=== PATIENT | female | born 1970 ===

== ENCOUNTER → 2019-03-02 | Outpatient (CLI) | payer MEDICARE, OTHER ==
--- NOTE | 2019-03-02 14:23 | MM ---
Reason for exam: additional evaluation requested from prior study. Last mammogram was performed 7 months ago. History: Patient has history of breast cancer at age 41. Family history of breast cancer in maternal grandmother. Took hormonal contraceptives for 3 months. Took antineoplastic for 5 years. Physical Findings: Nurse did not find any significant physical abnormalities on exam. MG 3D Diag Mammo W/Cad RT CC and MLO view(s) were taken of the right breast. Prior study comparison: August 12, 2018, mammogram. July 13, 2018, mammogram. There are scattered fibroglandular densities. Right lumpectomy change with developing heterogenous calcifications, likely associated fat necrosis. Biopsy marker remains. asymmetry just posterior to the lumpectomy site is less pronounced. These results were verbally communicated with the patient and result sheet given to the patient on 03/02/19. ASSESSMENT: Probably benign, BI-RAD 3 RECOMMENDATION: Follow-up diagnostic mammogram of both breasts in 6 months.
== END | disposition home or self-care (01) ==
LOC: RADMAMWWP 12:14
PROVIDERS: ATTEND Family Medicine
DX: Z08 Encounter for follow-up examination after completed treatment for malignant neoplasm (principal); Z85.3 Personal history of malignant neoplasm of breast; Z98.890 Other specified postprocedural states
CPT/HCPCS: 77065; G0279; 77061

== ENCOUNTER 2019-06-19 14:17 | Emergency (ER) | payer MEDICARE, OTHER ==
[2019-06-19 14:28] VITALS: RESP 18; TEMP 98.1
[2019-06-19] MEDS ORDERED: SODIUM CHLORIDE 0.9% 1,000 ML IV STA (14:46)
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
[2019-06-19] MEDS ORDERED: MECLIZINE 12.5 MG TAB PO STA (14:54)
--- NOTE | 2019-06-19 15:24 | XR ---
EXAMINATION TYPE: XR chest 2V DATE OF EXAM: 06/19/2019 COMPARISON: NONE TECHNIQUE: PA and lateral views submitted. HISTORY: cough FINDINGS: The lungs are clear and there is no pneumothorax, pleural effusion, or focal pneumonia. IMPRESSION: 1. No acute process.
[2019-06-19 15:25] LABS: Basophils % (A) 0 %; Eosinophils # (A) 0.1 k/uL (0-0.7); Eosinophils % (A) 1 %; HCT 44.6 % (34.0-46.0); HGB 14.7 gm/dL (11.4-16.0); Lymphocytes # (A) 1.5 k/uL (1.0-4.8); Lymphocytes % (A) 35 %; MCH 31.2 pg (25.0-35.0); MCHC 32.9 g/dL (31.0-37.0); MCV 94.8 fL (80.0-100.0); Mean Platelet Volume 10.7; Monocytes # (A) 0.2 k/uL (0-1.0); Monocytes % (A) 5 %; Neutrophils # (A) 2.5 k/uL (1.3-7.7); Neutrophils % (A) 57 %; Platelet Count 180 k/uL (150-450); RDW 12.5 % (11.5-15.5); WBC 4.5 k/uL (3.8-10.6)
[2019-06-19 15:31] LABS: ALT 22 U/L (4-34); AST 22 U/L (14-36); African American GFR (CKD) >90 (>60 ml/min/1.73 sqM); Albumin 4.6 g/dL (3.5-5.0); Alkaline Phosphatase 58 U/L (38-126); Anion Gap 9 mmol/L; Blood Urea Nitrogen 17 mg/dL (7-17); Calcium 9.7 mg/dL (8.4-10.2); Carbon Dioxide 24 mmol/L (22-30); Chloride 107 mmol/L (98-107); Glucose 87 mg/dL (74-99); Non-African American GFR(CKD) >90 (>60 ml/min/1.73 sqM); Potassium 3.9 mmol/L (3.5-5.1); Sodium 140 mmol/L (137-145); Total Bilirubin 0.8 mg/dL (0.2-1.3); Total Protein 7.4 g/dL (6.3-8.2)
[2019-06-19 15:49] LABS: Appearance,Urine Clear (Clear); Bilirubin,Urine Negative (Negative); Blood,Urine Negative (Negative); Glucose,Urine (UA) Negative (Negative)
[2019-06-19 15:50] LABS: Color,Urine Yellow; Leukocyte Esterase,Urine Negative (Negative); Nitrite,Urine Negative (Negative); Urobilinogen,Urine <2.0 mg/dL (<2.0)
[2019-06-19 15:51] LABS: Ketones,Urine Negative (Negative); Protein,Urine 1+ (Negative)
[2019-06-19 15:54] LABS: Bacteria,Urine Many /hpf; Mucus,Urine Rare /hpf; RBC,Urine <1 /hpf (0-5); Squamous Epithelial Cell,Urine 3 /hpf (0-4); WBC,Urine 5 /hpf (0-5)
[2019-06-19 16:05] LABS: Amphetamine Screen,Urine Not Detected (NotDetected); Barbiturate Screen,Urine Not Detected (NotDetected); Benzodiazepines Screen,Urine Not Detected (NotDetected); Cocaine Screen,Urine Not Detected (NotDetected); Methadone Screen, Urine Not Detected (NotDetected); Opiate Screen,Urine Not Detected (NotDetected); Phencyclidine Screen,Urine Not Detected (NotDetected); Tricyclic Antidepressant,Urine Not Detected (NotDetected); Urn Cannabinoid Scrn Not Detected (NotDetected)
[2019-06-19 16:06] LABS: Oxycodone Screen, Urine Detected (NotDetected)
[2019-06-19 16:34] VITALS: BP 117/81; PULSE 73
== END 2019-06-19 17:05 | disposition home or self-care (01) ==
LOC: EC 14:17
DX: R42 Dizziness and giddiness (principal); R05 Cough; R49.0 Dysphonia; G89.29 Other chronic pain; M54.9 Dorsalgia, unspecified; Z91.19 Patient's noncompliance with other medical treatment and regimen; Z53.29 Procedure and treatment not carried out because of patient's decision for other reasons; Z79.891 Long term (current) use of opiate analgesic; Z88.8 Allergy status to other drugs, medicaments and biological substances; Z85.3 Personal history of malignant neoplasm of breast; Z98.890 Other specified postprocedural states
CPT/HCPCS: 36415; 71046; 80053; 80306; 81001; 82375; 85025; 93005; 99284

== ENCOUNTER → 2019-11-21 | Outpatient (CLI) | payer MEDICARE, OTHER ==
--- NOTE | 2019-11-22 13:15 | MM ---
Reason for exam: additional evaluation requested from prior study. Last mammogram was performed 9 months ago. History: Patient has history of breast cancer at age 41. Family history of breast cancer in maternal grandmother. Lumpectomy of the right breast, 2011. Took hormonal contraceptives for 3 months. Took antineoplastic for 5 years. Physical Findings: Nurse did not find any significant physical abnormalities on exam. MG 3D Diag Mammo W/Cad JOANN Bilateral CC and MLO view(s) were taken. Prior study comparison: March 02, 2019, right breast MG 3d diag mammo w/cad RT. August 12, 2018, mammogram. The breast tissue is heterogeneously dense. This may lower the sensitivity of mammography. Global asymmetry left upper outer quadrant. Progressive fat necrosis calcifications right axillary tail. No significant new findings when compared with previous films. These results were verbally communicated with the patient and result sheet given to the patient on 11/21/19. ASSESSMENT: Incomplete: need additional imaging evaluation, BI-RAD 0 RECOMMENDATION: Ultrasound of both breasts. (periareolar on both side for nipple discharge)
== END | disposition home or self-care (01) ==
LOC: RADMAMWWP 14:31
PROVIDERS: ATTEND Family Medicine
DX: N64.52 Nipple discharge (principal); Z85.3 Personal history of malignant neoplasm of breast
CPT/HCPCS: 77066; G0279; 77062

== ENCOUNTER → 2019-11-28 | Outpatient (CLI) | payer MEDICARE, OTHER ==
--- NOTE | 2019-12-02 07:22 | USB ---
Reason for exam: additional evaluation requested from abnormal screening. History: Patient has history of breast cancer at age 41. Family history of breast cancer in maternal grandmother. Lumpectomy of the right breast, 2011. Took hormonal contraceptives for 3 months. Took antineoplastic for 5 years. Physical Findings: Nurse Summary: left nipple discharge started April 2019 ([facility]). US Breast Limited BILAT Right limited breast ultrasound including focal area of concern, retroareolar and axilla demonstrates no cystic or solid lesion seen. Left limited breast ultrasound including focal area of concern, retroareolar and axilla demonstrates no cystic or solid lesion seen. These results were verbally communicated with the patient and result sheet given to the patient on 11/28/19. ASSESSMENT: Negative, BI-RAD 1 RECOMMENDATION: Routine screening mammogram of both breasts in 1 year. Manage on a clinical basis with regard to pain.
== END | disposition home or self-care (01) ==
LOC: RADUSWWP 09:30
PROVIDERS: ATTEND Family Medicine
DX: R92.8 Other abnormal and inconclusive findings on diagnostic imaging of breast (principal); Z98.890 Other specified postprocedural states

== ENCOUNTER → 2020-08-03 | Outpatient (CLI) | payer MEDICARE, OTHER ==
--- NOTE | 2020-08-03 16:01 | P.GSHP ---
History of Present Illness H&P Date: 08/03/20 Chief Complaint: history of right breast cancer Christine is a 49 year old white female seen in consultation for Dr. Maravilla regarding a history of a right breast cancer. She was diagnosed with a right breast cancer at the age of 43 and was treated with a lumpectomy and radiation therapy. She did not have any chemotherapy, but did have hormonal therapy. She is uncertain as to the size of the tumor,it was an invasive ductal carcinoma. She did take tamoxifen for 5 years. Additionally she states that she was told that no lymph nodes were involved. She has been off of tamoxifen for approximately 1 year. She was in the [facility]. Her Surgeon was Dr. Tami Steel. At this time she is concerned that the breast are uneven. Her last bilateral mammogram was on following this bilateral breast ultrasound was performed. Following the ultrasound was felt that this was a negative BIRADS 1 and repeat bilateral mammogram in 1 year. She does complain of scar tissue in the right breast which makes it hard to evaluate. She did have biopsies of the scar tissue at [facility] and this was only scar tissue. She is complaining of some bilateral nipple crusting. This has been going on for approximately 3 years and hasn't changed. She is not complaining of any bloody discharge. There are no new lumps masses or nodules in her breasts. She does continue to have some fullness in the right breast near the area of the scar. She is not complaining of any breast pain. The difference in chantale size of hte breast is of concern to the patient. Her breast do not fit correctly secondary to the difference in size. Patient had genetic testing performed when she was diagnosed and was told this was negative. Caffeine: Occasional Nicotine: Negative Chocolate:occasional Family history: maternal grandmother: breast cancer father: prostate cancer Hormonal History: menarche: 15 A2, breast fed: no, age at : 17 menopause: hysterectomy at 35, left ovaries; done for fibroids BCP: 1 year; DEPO shot 6 months after breast cancer Surgical History: hysterectomy right breast lumpectomy and [facility] ovarian cyst 4 back surgeries Medical history: chronic back pain migraines kidney stones times 4/lithotripsy Social History: smoke: none alcohol: none drugs: none - Constitutional Constitutional: Reports sweats - EENT Eyes: denies blurred vision, denies pain Ears: deny: decreased hearing, tinnitus Ears, nose, mouth and throat: Reports headache - Breasts Breasts: bilateral: as per HPI - Cardiovascular Cardiovascular: Denies chest pain, Denies shortness of breath - Respiratory Respiratory: Denies cough, Denies 7 - Gastrointestinal Gastrointestinal: Denies abdominal pain, Denies diarrhea, Denies nausea, Denies vomiting - Genitourinary (Female) Genitourinary: Reports kidney stones - Menstruation Menstruation: Reports postmenopausal - Musculoskeletal Comment: back surgery/ fell off a ladder Musculoskeletal: Reports myalgias - Integumentary Integumentary: Denies pruritus, Denies rash - Neurological Neurological: Reports weakness, Denies numbness - Psychiatric Psychiatric: Reports anxiety, Denies depression - Endocrine Endocrine: Reports weight change - Hematologic/Lymphatic Comment: none - Allergic/Immunologic Allergic/Immunologic: Reports as per HPI Past Medical History Past Medical History: Cancer Additional Past Medical History / Comment(s): chronic back pain, breast CA History of Any Multi-Drug Resistant Organisms: None Reported Past Surgical History: Back Surgery, Breast Surgery Additional Past Surgical History / Comment(s): 4 back surgery, R lumpectomy Past Psychological History: Anxiety Smoking Status: Never smoker Past Alcohol Use History: None Reported Past Drug Use History: None Reported Medications and Allergies Home Medications Medication Instructions Recorded Confirmed Type Ascorbic Acid [Vitamin C] 500 mg PO DAILY 08/03/20 08/03/20 History Biotin 5 mg PO DAILY 08/03/20 08/03/20 History Butalb/Acetaminophen/Caffeine 1 - 2 cap PO Q4HR PRN 08/03/20 08/03/20 History [Fioricet 50-300-40 mg Capsule] Cholecalciferol [Vitamin D3 (25 25 mcg PO DAILY 08/03/20 08/03/20 History Mcg = 1000 Iu)] Multivitamin [Multivitamins Adult 1 each PO DAILY 08/03/20 08/03/20 History Gummies] Topiramate [Topamax] 25 mg PO BID 08/03/20 08/03/20 History buPROPion [Wellbutrin] 75 mg PO BID 08/03/20 08/03/20 History oxyCODONE-APAP 7.5-325MG [Percocet 1 tab PO Q6HR PRN 08/03/20 08/03/20 History 7.5-325 mg] Allergies Allergy/AdvReac Type Severity Reaction Status Date / Time prochlorperazine Allergy Unknown Verified 06/19/19 14:22 [From Compazine] promethazine [From Phenergan] Allergy Unknown Verified 06/19/19 14:22 diphenhydramine AdvReac Unknown Verified 06/19/19 14:22 [From Benadryl] metoclopramide [From Reglan] AdvReac Unknown Verified 06/19/19 14:22 Surgical - Exam BMI 23.4 - General well developed, well nourished, no distress - Eyes normal ocular movement - ENT normal pinna, normal nares - Neck no masses, trachea midline - Respiratory normal expansion, normal respiratory effort, clear to auscultation - Cardiovascular Rhythm: regular Heart Sounds: normal: S1, S2 - Abdomen Abdomen: soft, non tender, no guarding, no rigid, no rebound - Integumentary normal turgor - Neurologic no disoriented, no combative - Musculoskeletal normal gait - Psychiatric oriented to time, oriented to person, oriented to place, speech is normal, memory intact Breast Exam: BRA: 36C ( does not fit both breast) inspection: Right breast smaller than left breast, grade 1/2 ptosis on the right, grade 2/3 ptosis on the left Palpation: Right breast: Multiple positional exam fibrocystic changes, well-healed scar from prior lumpectomy, radiation skin changes no dominant masses or nodules of concern Right axilla: No adenopathy of concern Left breast: Multiple positional exam fibrocystic changes, larger than the right breast, nipple areolar complex approximately 2 cm lower than that on the right Left axilla: No adenopathy of concern Results Mammogram and ultrasound reviewed with radiology Dr. Hollingsworth Assessment and Plan Assessment: Impression: 1. Patient status post right breast lumpectomy/sentinel node biopsy no evidence of recurrent cancer at this time 2. Patient has completed a course of tamoxifen 3. Most recent bilateral mammogram in November 2019 this is reviewed with radiology no lesion to require biopsy at this time 4. Bilateral fibrocystic breast changes 5. Asymmetry of the breast related to treatment for breast cancer 6. Back pain 7. 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 Patient wishes a symmetry procedure to be performed secondary to the asymmetry related to the prior breast cancer surgery 2. Bilateral mammogram in November 2020, with appointment 3. Patient is not following with any of her prior oncology doctors as she has relocated 4. obtain pathology reports form right breast from [facility] in [place] I discussed with the patient at this time do not think she has any evidence of recurrent cancer. She would like to have a procedure performed for the asymmetry. I have marked on her breast with a crescent mastopexy incision would look like. We have measured out the distance from the sternal notch to the nipple areolar complex on both the right and left side. The patient would like to have the mastopexy however she is also concerned about the discrepancy in the size of the breast. I am uncertain as to whether she has a large enough press on the left to mid reduction mammoplasty and have requested that she be seen by plastic surgeon. We will attempt to set this up and further recommendation to follow. Encounter 50 minutes, time spent in physical exam, reviewing medical records, and counselling.
== END ==
LOC: WWCWWP 14:33
PROVIDERS: ATTEND Surgery
DX: N60.11 Diffuse cystic mastopathy of right breast (principal); N60.12 Diffuse cystic mastopathy of left breast; M54.9 Dorsalgia, unspecified; R92.8 Other abnormal and inconclusive findings on diagnostic imaging of breast; F41.9 Anxiety disorder, unspecified; Z85.3 Personal history of malignant neoplasm of breast

== ENCOUNTER → 2020-09-21 | Outpatient (CLI) | payer MEDICARE, OTHER ==
[2020-09-21 22:45] LABS: Birch IgE <0.10 kU/L; Cat Epith & Dander IgE 1.14 kU/L
[2020-09-21 22:46] LABS: Dog Dander IgE <0.10 kU/L; Elm IgE <0.10 kU/L; Oak IgE <0.10 kU/L
[2020-09-24 14:45] LABS: Bermuda Grass IgE <0.10 kU/L (<0.10); Meadow Fescue IgE <0.10 kU/L (<0.10); Meadow Fescue IgE Class CLASS 0; Pecan IgE <0.10 kU/L (<0.10); Pecan IgE Class CLASS 0
[2020-09-24 14:46] LABS: Honeybee Venom IgE Class CLASS 0; House Dust (H-S) IgE 0.21 kU/L (<0.10); House Dust (H-S) IgE Class CLASS 0/1; Meadow Grs (KY blue) IgE <0.10 kU/L (<0.10); Meadow Grs (KY blue) IgE Class CLASS 0; Timothy Grass IgE <0.10 kU/L (<0.10); Timothy Grass IgE Class CLASS 0; White-Faced Hornet IgE <0.10 kU/L (<0.10); White-Faced Hornet IgE Class CLASS 0
[2020-09-24 14:47] LABS: Paper Wasp IgE <0.10 kU/L (<0.10); Paper Wasp IgE Class CLASS 0; Penicillium notatum IgE Class CLASS 0; Yellow Hornet IgE <0.10 kU/L (<0.10); Yellow Hornet IgE Class CLASS 0; Yellow Jacket IgE Class CLASS 0
[2020-09-24 14:48] LABS: Alt. alternata IgE Class CLASS 0; Alternaria alternata IgE <0.10 kU/L (<0.10); Sycamore(Mpl.Lf) IgE <0.10 kU/L (<0.10); Sycamore(Mpl.Lf) IgE Class CLASS 0; Willow Tree IgE <0.10 kU/L (<0.10)
[2020-09-24 14:49] LABS: Beech IgE <0.10 kU/L (<0.10); Cottonwood IgE <0.10 kU/L (<0.10); Goldenrod IgE <0.10 kU/L (<0.10); Goldenrod IgE Class CLASS 0; Lamb's Quarter IgE <0.10 kU/L (<0.10); Lamb's Quarter IgE Class CLASS 0; Sheep Sorrel IgE <0.10 kU/L (<0.10); Sheep Sorrel IgE Class CLASS 0
[2020-09-24 14:50] LABS: English Plantain IgE Class CLASS 0; Ragweed, Giant IgE <0.10 kU/L (<0.10); Ragweed, Giant IgE Class CLASS 0
== END | disposition home or self-care (01) ==
LOC: LABWHC1 13:42
PROVIDERS: ATTEND Internal Medicine
DX: L50.9 Urticaria, unspecified (principal); J31.0 Chronic rhinitis
CPT/HCPCS: 36415; 86003

== ENCOUNTER → 2020-10-30 | Outpatient (CLI) | payer MEDICARE, OTHER ==
--- NOTE | 2020-10-31 00:28 | MR ---
EXAMINATION TYPE: MR hand LT wo con DATE OF EXAM: 10/30/2020 COMPARISON: None HISTORY: Left hand and fingers pain, swelling, locking, prior injury Multiplanar multiecho imaging of the left hand was performed without contrast. The metacarpals appear intact. There is 5 mm area of increased signal at the base of the first metaca rpal consistent with osteoarthritis and degenerative cyst formation. On the STIR images there is some increased fluid signal along the flexor tendons of the fingers. I see no evidence of a fracture. The flexor tendons of the fingers appear intact. There is no evidence of a soft tissue mass. IMPRESSION: Increased fluid signal along the flexor tendons of the fingers that could relate to some tenosynoviti s. No fracture. 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
== END | disposition home or self-care (01) ==
LOC: RADMRIMAIN 07:28
PROVIDERS: ATTEND Orthopaedic Surgery
DX: M19.042 Primary osteoarthritis, left hand (principal)

== ENCOUNTER → 2020-11-13 | Outpatient (CLI) | payer MEDICARE, OTHER ==
[2020-11-13 09:05] VITALS: BP 110/77; PULSE 75; RESP 18; TEMP 98.4
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
== END ==
LOC: WWCWWP 08:43
PROVIDERS: ATTEND Obstetrics & Gynecology
DX: R10.30 Lower abdominal pain, unspecified (principal); R10.2 Pelvic and perineal pain; R35.0 Frequency of micturition; F41.9 Anxiety disorder, unspecified; Z88.0 Allergy status to penicillin; Z87.442 Personal history of urinary calculi; Z86.018 Personal history of other benign neoplasm; Z85.3 Personal history of malignant neoplasm of breast; Z88.8 Allergy status to other drugs, medicaments and biological substances; Z90.710 Acquired absence of both cervix and uterus; Z98.890 Other specified postprocedural states

== ENCOUNTER → 2020-11-16 | Outpatient (CLI) | payer MEDICARE, OTHER ==
[2020-11-16 21:25] LABS: HIV 2 AB Non-Reactive (Non-Reactive); HIV AB P24 Non-Reactive (Non-Reactive); HIV P24 AG Non-Reactive (Non-Reactive)
[2020-11-17 05:40] LABS: Hepatitis B Surface Antigen Non-Reactive (Non-Reactive); Hepatitis C IgG Antibody Non-Reactive (Non-Reactive)
== END | disposition home or self-care (01) ==
LOC: LABWHC1 12:30
PROVIDERS: ATTEND Obstetrics & Gynecology
DX: Z11.3 Encounter for screening for infections with a predominantly sexual mode of transmission (principal); R10.2 Pelvic and perineal pain
CPT/HCPCS: 36415; 86780; 86803; 87340; 87390

== ENCOUNTER → 2020-11-28 | Outpatient (CLI) | payer MEDICARE, OTHER ==
--- NOTE | 2020-11-30 09:39 | MM ---
Reason for exam: screening (asymptomatic). Last mammogram was performed 1 year ago. History: Patient has history of breast cancer at age 41. Family history of breast cancer in maternal grandmother. Lumpectomy of the right breast, 2011. Took hormonal contraceptives for 3 months. Took antineoplastic for 5 years. Physical Findings: A clinical breast exam by your physician is recommended on an annual basis and results should be correlated with mammographic findings. MG 3D Screening Mammo W/Cad Bilateral CC and MLO view(s) were taken. Prior study comparison: July 13, 2018, mammogram. Finding: There are typically benign coarse calcifications in the axilla position of the right breast. Focal asymmetry left upper outer quadrant, stable. No significant changes in finding since July 13, 2018. ASSESSMENT: Benign, BI-RAD 2 RECOMMENDATION: Routine screening mammogram of both breasts in 1 year.
== END | disposition home or self-care (01) ==
LOC: RADMAMWWP 07:50
PROVIDERS: ATTEND Surgery
DX: Z12.31 Encounter for screening mammogram for malignant neoplasm of breast (principal); Z85.3 Personal history of malignant neoplasm of breast; Z80.3 Family history of malignant neoplasm of breast; Z79.3 Long term (current) use of hormonal contraceptives
CPT/HCPCS: 77063; 77067

== ENCOUNTER 2021-01-09 09:27 | Day surgery (SDC) | payer MEDICARE, OTHER ==
[2021-01-02 12:09] VITALS: BMI 26.5
[~2021-01-09 09:27] MED LIST: DEXAMETHASONE SOD PHOSPHATE 4 MG/ML 1 ML VIAL IV ONE; LACTATED RINGERS 1,000 ML IV SCH; LIDOCAINE 1% (10MG/ML) FOR IV START INTRADERMA PRN; MIDAZOLAM 2 MG/2 ML VIAL IV PRN; ONDANSETRON 4 MG/2 ML VIAL IVP ONE; Pre Op ABX Message 1 EACH MISC MISCELLANE ONE
[2021-01-09] MEDS ORDERED: PROPOFOL 10 MG/ML 20 ML VIAL IV ONE (10:34)
[2021-01-09] MEDS ORDERED: fentaNYL (PF) 50 MCG/ML 2 ML AMP ONE (10:34)
[2021-01-09] MEDS ORDERED: SUCCINYLCHOLINE CHLORIDE 100 MG/5 ML SYR IV ONE (10:34)
[2021-01-09] MEDS ORDERED: PHENYLEPHRINE-0.9% NACL SYG 1,000 MCG/10 ML SYRINGE ONE (10:34)
[2021-01-09] MEDS ORDERED: MIDAZOLAM 2 MG/2 ML VIAL ONE (10:34)
[2021-01-09] MEDS ORDERED: LIDOCAINE 1% INJ 10MG/ML (20 ML MDV) ONE (10:34)
[2021-01-09] MEDS ORDERED: SODIUM CHLORIDE 0.9% 100 ML with ceFAZolin 2,000 MG IV ONE ×2 (10:45)
[2021-01-09] MEDS ORDERED: LACTATED RINGERS 1,000 ML IV ONE (12:55)
[2021-01-09 13:19] VITALS: TEMP 96.8
[2021-01-09 13:27] VITALS: RESP 16
[2021-01-09] MEDS: HYDROmorphone 0.5 MG/0.5 ML SYRINGE IVP PRN ×2 (13:46→13:58)
[2021-01-09] MEDS ORDERED: oxyCODONE-APAP 7.5-325MG 1 EACH TAB ONE (14:15)
[2021-01-09] MEDS ORDERED: oxyCODONE-APAP 7.5-325MG 1 EACH TAB PO ONE (14:20)
[2021-01-09 14:39] VITALS: BP 120/82; PULSE 66
[2021-01-09] MEDS ORDERED: ONDANSETRON ODT 4 MG TAB PO ONE (15:07)
--- NOTE | 2021-01-09 18:07 | OP ---
OPERATIVE REPORT DATE OF SURGERY: January 09, 2021. SURGEON: Dr. Burak Jalloh. PREOPERATIVE DIAGNOSES: 1. Acquired asymmetry of breast secondary to breast cancer treatment and radiation therapy. 2. Personal history of breast cancer. POSTOPERATIVE DIAGNOSES: 1. Acquired asymmetry of breast secondary to breast cancer therapy surgery and radiation therapy. 2. Personal history of breast cancer. OPERATIVE PROCEDURE: Left breast reduction. OPERATIVE INDICATIONS: The patient is a 50-year-old female who had undergone treatment for breast cancer in 2017 of the right breast including lumpectomy, axillary node removal and radiation treatment for 6 weeks. She developed breast asymmetry secondary to these treatments and has lived with it for a period of time, but feels she can no longer do that as she has difficulty wearing her bra as her left breast is larger than the right and feels she also does not look proper in her clothing due different position of the nipples. She has requested surgical treatment for her problem and was seen and evaluated in consultation. She has elected to proceed with a left breast reduction. The patient understands other potential risks and complications related to all surgery including hematoma, seroma, wound healing problems, loss of sensation or loss of nipple-areolar complex, among others. She also understands that a perfectly symmetrical result of the left breast to the right can not be achieved. She has requested I perform the surgery. OPERATIVE PROCEDURE SUMMARY: The patient is seen in the preoperative area. Procedure reviewed. All questions answered. Markings made. She was transported to the operating room where she was placed in supine position. Following induction of general tracheal anesthesia, the patient is prepped and draped in usual fashion. The markings placed for the left breast were diagrammed in a vertical reduction fashion. 45 mm nipple-areolar template was drawn around the area with a distracted and then a 2nd [employer] placed around the 1st in concentric fashion. Approximately 1 cm of distance in between the 2 circles. This 1 cm area was de-epithelialized with a 10 blade scalpel. All tissue that was removed was conserved for specimen and weights. Through the outer periphery of the de- epithelialized tissue, the incision was carried into breast parenchyma using cauterization. Scissor dissection was then performed to separate the breast central gland from all skin attachments. Initial dissection performed with Lutz scissors and then cauterization was used to maintain hemostasis and also dissect further such that the gland was separate from the skin for mobility and draping purposes. With the patient in a seated up position, the redundant skin and subcutaneous tissue was now temporarily folded in and held with tha to compare markings placed preoperatively and these did require some adjustment to optimize the shape. With that completed, the area was now marked with a skin marker for resection. The patient was returned to supine position. The temporary tha were removed and the redundant skin and subcutaneous tissue and breast parenchyma were now resected using first 10 blade scalpel and then cauterization. The excised tissue was sent to pathology. The final inspection made for hemostasis which was excellent. The nipple-areolar complex was oriented for retrieval with 1 staple at 12 o'clock and two at into the 3 o'clock position. The vertical incision was now closed approximating deep dermis using inverted interrupted 4-0 Monocryl. The patient is again placed in seated up position. A 45 mm nipple-areolar template used to draw diagram for nipple areolar location. This was then marked. The base of the areola to the inferior mammary crease was measured. It was longer than comparing to the right side. At this point, with the incision closed, the transverse excision of redundant skin and subcutaneous tissue was required to optimize the shape and symmetry. The tissue was 1st marked and then held temporary with tha while evaluating in a seated up position. Once adjusted to optimal amount, the area was marked. The patient is returned supine position. Temporary tha removed. The horizontal resection redundant skin and subcutaneous tissue was completed with a 10 blade scalpel along just above the inframammary fold level. The tissue was once making skin incision, cauterization used to complete resection and maintain hemostasis. The incision was now closed using interrupted 4-0 Monocryl deep dermal sutures. The patient again placed in a seated up position. Nipple-areolar template marking site was correct for placement. She was returned to supine position. This circular area de-epithelialized with a 10 blade scalpel and then a cruciate incision made through the de-epithelized tissue. The nipple-areolar complex was directly underneath the site and placed in its new location. Orientation was assured by identifying the staple locations. The nipple-areolar complex was inset at the 12 o'clock, 3 o'clock, 6 o'clock, 9 o'clock position using inverted interrupted 4-0 Monocryl. Each of these locations bisected with the same suture. The final layer from nipple-areolar complex was completed with a circumareolar running 5-0 Prolene. The vertical incision was closed with running 5-0 Prolene and the transverse horizontal incision closed with subcuticular 3-0 Prolene. Surgical saenz cleansed with saline, dried postoperative bandages placed using 1 sterile paper tape over suture repairs followed by Kerlix squares secured with paper tape and positioned a size 3 mammary support. The patient was then awakened from her anesthetic, extubated, and transferred to the recovery room in good condition with stable vital signs. The final weight of tissue removed from the left breast was 200 g. It was sent to pathology. ESTIMATED BLOOD LOSS: 50 mL. There were no complications. MMODL / IJN: [id number] /
== END 2021-01-09 15:17 | disposition home or self-care (01) ==
LOC: OR 09:27
PROVIDERS: ATTEND Plastic Surgery
DX: N64.89 Other specified disorders of breast (principal); Z85.3 Personal history of malignant neoplasm of breast; Z92.3 Personal history of irradiation; F32.9 Major depressive disorder, single episode, unspecified; F41.9 Anxiety disorder, unspecified; Z88.0 Allergy status to penicillin; Z88.8 Allergy status to other drugs, medicaments and biological substances; Z79.899 Other long term (current) drug therapy
CPT/HCPCS: 19318; 88305; J2250; J1100; J2405; J0690; J2001; J3010; J2370; J0330; J2704; J1170

== ENCOUNTER 2021-01-09 17:58 | Emergency (ER) | payer MEDICARE, OTHER ==
[2021-01-09 18:23] VITALS: BP 122/78; PULSE 94; RESP 18; TEMP 98.2
--- NOTE | 2021-01-09 19:36 | ED ---
General Adult HPI - General Chief complaint: Wound/Laceration Stated complaint: PostOp Bleeding Time Seen by Provider: 01/09/21 18:20 Source: patient, RN notes reviewed, old records reviewed Mode of arrival: ambulatory Limitations: no limitations - History of Present Illness Initial comments: This a 50-year-old female presents emergency department after having left breast reduction this morning. Patient states she bled through her dressing into her bra and underwear close neck concerned her she came to the emergency department. The bleeding has since stopped. Patient denies being lightheaded or dizzy patient denies any shortness of breath or difficulty breathing or chest pain. Patient has no other complaints other than it was bleeding through her clothes earlier. - Related Data Home Medications Medication Instructions Recorded Confirmed Butalb/Acetaminophen/Caffeine 1 - 2 cap PO Q4HR PRN 08/03/20 01/09/21 [Fioricet 50-300-40 mg Capsule] Multivitamin [Multivitamins Adult 1 each PO DAILY 08/03/20 01/09/21 Gummies] buPROPion [Wellbutrin] 75 mg PO BID 08/03/20 01/09/21 oxyCODONE-APAP 7.5-325MG [Percocet 1 tab PO Q6HR PRN 08/03/20 01/09/21 7.5-325 mg] Fluticasone Nasal [place] [Flonase 1 spray EA NOSTRIL DAILY PRN 11/13/20 01/09/21 Nasal [place]] Melatonin 3 mg PO HS PRN 11/13/20 01/09/21 Ubrogepant [Ubrelvy] 50 mg PO DAILY PRN 11/13/20 01/09/21 Topiramate [Topamax] 1 tab PO DAILY 01/09/21 01/09/21 Allergies Allergy/AdvReac Type Severity Reaction Status Date / Time prochlorperazine Allergy Unknown Verified 01/09/21 18:20 [From Compazine] promethazine [From Phenergan] Allergy Unknown Verified 01/09/21 18:20 diphenhydramine AdvReac Unknown Verified 01/09/21 18:20 [From Benadryl] metoclopramide [From Reglan] AdvReac Unknown Verified 01/09/21 18:20 Penicillins AdvReac Vomiting Verified 01/09/21 18:20 Review of Systems ROS Statement: Those systems with pertinent positive or pertinent negative responses have been documented in the HPI. ROS Other: All systems not noted in ROS Statement are negative. Past Medical History Past Medical History: Cancer Additional Past Medical History / Comment(s): chronic back pain. Right breast CA status post lumpectomy and radiation therapy in 2006. Migraine. Seasonal ALLERGIES. History of kidney stones. 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 History of Any Multi-Drug Resistant Organisms: None Reported Past Surgical History: Back Surgery, Breast Surgery, Hysterectomy Additional Past Surgical History / Comment(s): 4 back surgery, R breast lumpectomy 2006. Colonoscopy in the . 01/01/21 middle finger lt hand surgery to repair fx Past Anesthesia/Blood Transfusion Reactions: No Reported Reaction, Motion Sickness Past Psychological History: Anxiety Smoking Status: Never smoker - Past Family History Father Family Medical History: Cancer, Deep Vein Thrombosis (DVT), Hypertension Additional Family Medical History / Comment(s): Prostate and liver cancer. Mother Family Medical History: Unable to Obtain Additional Family Medical History / Comment(s): Maternal grandmother had breast cancer. General Exam - General Exam Comments Initial Comments: GENERAL Patient is well-developed and well-nourished. Patient is in mild distress. EYES Patient's pupils are equal and round. Extraocular motion is intact CHEST I removed all the dressing from the left breast and cut down to feel surgical incision which was taped over there was no active bleeding we replaced all the dressing in place the bra back on the patient and had her get up and walk around and no bleeding occurred in the emergency department. SKIN Unremarkable NEURO The patient is alert and oriented 3 PYSCH Patient has normal interpersonal interactions. Limitations: no limitations Course Vital Signs 01/09/21 18:18 Temperature 98.2 F Pulse Rate 94 Respiratory 18 Rate Blood Pressure 122/78 O2 Sat by Pulse 96 Oximetry Medical Decision Making - Medical Decision Making I spoke with Dr. Carmen he was not concerned with the amount of bleeding that I described. He stated he wanted us to repack it but the bra back on it's exactly what we gave the patient did not continue bleeding while she was in the emergency department and he wanted to follow-up as previously arranged. Disposition Clinical Impression: Post-op bleeding Disposition: HOME SELF-CARE Instructions (If sedation given, give patient instructions): Postoperative Bleeding (ED) Additional Instructions: Patient should follow-up with Dr. Carmen as previously arranged. Patient should return if bleeding becomes heavy she was so short of breath or lightheaded Is patient prescribed a controlled substance at d/c from ED?: No Referrals: Aye Santa MD [Primary Care Provider] - 1-2 days Time of Disposition: 19:36
== END 2021-01-09 19:51 | disposition home or self-care (01) ==
LOC: EC 17:58
DX: L76.22 Postprocedural hemorrhage of skin and subcutaneous tissue following other procedure (principal); F41.9 Anxiety disorder, unspecified; Z79.899 Other long term (current) drug therapy; Z85.3 Personal history of malignant neoplasm of breast; Z88.0 Allergy status to penicillin; Z88.8 Allergy status to other drugs, medicaments and biological substances; Z82.49 Family history of ischemic heart disease and other diseases of the circulatory system; Z80.3 Family history of malignant neoplasm of breast
CPT/HCPCS: 99283

== ENCOUNTER → 2021-03-14 | Outpatient (CLI) | payer MEDICARE, OTHER ==
[2021-03-14 15:42] VITALS: BP 127/84; PULSE 71; RESP 16; TEMP 98.3
--- NOTE | 2021-03-14 16:14 | P.PN ---
Subjective Progress Note Date: 03/14/21 Principal diagnosis: right breast cancer Christine is a 50 year old white female seen initially in consultation for Dr. Maravilla regarding a history of a right breast cancer. She was diagnosed with a right breast cancer at the age of 43 and was treated with a lumpectomy and radiation therapy. She did not have any chemotherapy, but did have hormonal therapy. She is uncertain as to the size of the tumor,it was an invasive ductal carcinoma. She did take tamoxifen for 5 years. Additionally she states that she was told that no lymph nodes were involved. She has been off of tamoxifen for approximately 1 year. She was in the [facility]. Her Surgeon was Dr. Tami Steel. She was concerned that the breast were uneven. She had a bilateral mammogram on 11-28-20 which was benign BIRAD 2. She does complain of scar tissue in the right breast which makes it hard to evaluate. She did have biopsies of the dense tissue at [facility] and this was only scar tissue. Secondary to the asymmetry she had a left breast reduction on 01-09-21. She is complaining of some bilateral nipple crusting. This is occasional. She no longer has it from the left breast. She is not complaining of any bloody discharge. There are no new lumps masses or nodules in her breasts. She does continue to have some fullness in the right breast near the area of the scar. She is not complaining of any breast pain. Review of the reduction mammoplasty report reveals a 51 g of tissue was removed. This is 0.11 pounds. At this time she is concern that she still has some mild fullness in the lateral aspect of the left breast. Patient had genetic testing performed when she was diagnosed and was told this was negative. Caffeine: Occasional Nicotine: Negative Chocolate:occasional Family history: maternal grandmother: breast cancer father: prostate cancer Hormonal History: menarche: 15 A2, breast fed: no, age at : 17 menopause: hysterectomy at 35, left ovaries; done for fibroids BCP: 1 year; DEPO shot 6 months after breast cancer Surgical History: hysterectomy right breast lumpectomy and SNB ovarian cyst 4 back surgeries Medical history: chronic back pain migraines kidney stones times 4/lithotripsy Social History: smoke: none alcohol: none drugs: none - Constitutional Constitutional: Reports sweats - EENT Eyes: denies blurred vision, denies pain Ears: deny: decreased hearing, tinnitus Ears, nose, mouth and throat: Reports headache - Breasts Breasts: bilateral: as per HPI - Cardiovascular Cardiovascular: Denies chest pain, Denies shortness of breath - Respiratory Respiratory: Denies cough - Gastrointestinal Gastrointestinal: Denies abdominal pain, Denies diarrhea, Denies nausea, Denies vomiting - Genitourinary (Female) Genitourinary: Reports kidney stones - Menstruation Menstruation: Reports postmenopausal - Musculoskeletal Comment: back surgery/ fell off a ladder Musculoskeletal: Reports myalgias - Integumentary Integumentary: Denies pruritus, Denies rash - Neurological Neurological: Reports weakness, Denies numbness - Psychiatric Psychiatric: Reports anxiety, Denies depression - Endocrine Endocrine: Reports weight change - Hematologic/Lymphatic Comment: none - Allergic/Immunologic Allergic/Immunologic: Reports as per HPI Objective - Vital Signs Vital signs: Vital Signs Temp 98.3 F 03/14/21 15:39 Pulse 71 03/14/21 15:39 Resp 16 03/14/21 15:39 BP 127/84 03/14/21 15:39 Pulse Ox 98 03/14/21 15:39 Intake & Output 03/13/21 03/14/21 03/14/21 18:59 06:59 18:59 Weight 68.039 kg - Constitutional General appearance: Present: cooperative - EENT Eyes: Present: EOMI ENT: Present: hearing grossly normal - Respiratory Respiratory: bilateral: CTA - Cardiovascular Heart sounds: normal: S1 - Integumentary Integumentary: Present: normal turgor - Musculoskeletal Musculoskeletal: Present: gait normal - Psychiatric Psychiatric: Present: A&O x's 3, appropriate affect, intact judgment & insight - Additional findings Additional findings: Breast examination: Bra: 38C Inspection: Well-healed scars left breast from recent reduction mammoplasty Palpation: Right breast: Positional exam fibrocystic changes no dominant masses or nodules of concern Right axilla: No adenopathy of concern Left breast: Multi-positional exam postop changes no dominant masses or nodules of concern incisions clean and dry well-healed Left axilla: No adenopathy of concern Assessment and Plan Assessment: Impression 1. Patient status post left breast reduction mammoplasty secondary to asymmetry related to right breast surgery for invasive ductal carcinoma Patient has some concerns about some residual fullness in the lateral aspect of the breast Plan: At this time related to the right breast of repeat a bilateral mammogram in 6 months with repeat examination at that time I would encourage the patient to follow-up with Dr. Carmen from plastic surgery regarding concerns in the left breast CC: Dr. Andrew Maravilla
== END ==
LOC: WWCWWP 15:31
PROVIDERS: ATTEND Surgery
DX: N64.89 Other specified disorders of breast (principal); Z98.890 Other specified postprocedural states; Z98.82 Breast implant status; Z85.3 Personal history of malignant neoplasm of breast; Z88.8 Allergy status to other drugs, medicaments and biological substances; Z88.0 Allergy status to penicillin

== ENCOUNTER → 2021-09-07 | Outpatient (CLI) | payer MEDICARE, OTHER ==
--- NOTE | 2021-09-13 14:17 | CT ---
EXAMINATION TYPE: CT lumbar spine wo con DATE OF EXAM: 09/07/2021 7:39 AM COMPARISON: None HISTORY: bilateral lower leg swelling CT DLP: 459.4 mGycm Automated exposure control for dose reduction was used. Technique: Unenhanced CT of the lumbar spine was performed. Bone and soft tissue window settings are submitted as well as coronal and sagittal reconstructions. Findings: The lumbar vertebral segments are normal in height and alignment and there is no fracture or subluxat ion. There are postsurgical changes of laminectomy at the L4-5 and L5-S1 levels as well as interdisc fusio n devices at the L4-5 and L5-S1 levels. There is partial bony fusion at both levels.. There are also postsurgical changes indicating removal of pedicle screws from the L4 and L5 segments. Posterior to t he L5-S1 disc space, within the posterior soft tissues, there is a linear density which appears to represent a remnant/ wire from a prior spinal stimulator device. There is no evidence of spinal stenosis or large disc herniation. The visualized portion the sacrum appears normal. IMPRESSION: 1. Postsurgical changes as described above. 2. Partial fusion bony fusion of the L4-5 and L5-S1 disc spaces. 3. No acute fracture or malalignment. 4. No evidence of spinal stenosis or large disc herniation.
== END | disposition home or self-care (01) ==
LOC: RADCTMAIN 07:08
PROVIDERS: ATTEND Orthopaedic Surgery Sports Medicine
DX: M43.27 Fusion of spine, lumbosacral region (principal); M79.89 Other specified soft tissue disorders
CPT/HCPCS: 72131

== ENCOUNTER → 2021-09-07 | Outpatient (CLI) | payer MEDICARE, OTHER ==
--- NOTE | 2021-09-07 11:35 | CT ---
EXAMINATION TYPE: CT sinus wo con DATE OF EXAM: 09/07/2021 COMPARISON: None HISTORY: Sinusitis, Lt facial swelling CT DLP: 618.1 mGycm. Automated Exposure Control for Dose Reduction was Utilized. TECHNIQUE: CT scan of the sinuses is performed without contrast, axial images are obtained, coronal r eformatted images are also reviewed. FINDINGS: There is a 1.4 cm polyp or mucous retention cyst within the right maxillary antrum. Remaini ng paranasal sinuses are normal development and aeration.. The ostiomeatal complex is patent bilater ally on the coronal images. Small rajesh bullosa on the right and moderate size rajesh bullosa on the left. Nasal septal deviation noted. Visualized portion of mastoid air cells show no abnormal opacification. The globes are intact bilate rally. Dental artifact noted. IMPRESSION: 1. Mucous retention cyst or polyp right maxillary sinus with no other evidence to suggest sinusitis. 2. Nasal septal deviation. 3. Intracranial images demonstrate nodular prominence of left MCA bifurcation. Recommend MRA [place].
== END | disposition home or self-care (01) ==
LOC: RADCTMAIN 07:03
PROVIDERS: ATTEND Otolaryngology
DX: J34.2 Deviated nasal septum (principal); R91.1 Solitary pulmonary nodule
CPT/HCPCS: 70486

== ENCOUNTER → 2021-09-21 | Outpatient (CLI) | payer MEDICARE, OTHER ==
--- NOTE | 2021-09-22 08:30 | MR ---
EXAMINATION TYPE: MR angio head wo con DATE OF EXAM: 09/21/2021 COMPARISON: Sinus CT September 07, 2021 HISTORY: Abnormal findings on CT. Headaches. TECHNIQUE: Time of flight images focusing on the [place] were performed without contrast.. 2-D and 3-D postprocessing imaging is performed on independent workstation and reviewed. FINDINGS: There are codominant vertebral arteries filling the basilar artery. There is no significant focal stenosis or aneurysm in the posterior circulation. There is hypoplastic left P1 segment. There is filling of the left P2 segment due to a patent left posterior communicating artery. There is pat ent right posterior communicating artery. Images of the anterior circulation show prominence but no aneurysm at the distal left MCA bifurcation corresponding to area of concern on recent CT. There is poorly visualized or hypoplastic anterior co mmunicating artery. There is no significant focal stenosis or aneurysm in the anterior circulation. IMPRESSION: No aneurysm at the level of the [place] with particular attention to the distal left middle cerebral artery at area of concern on recent sinus CT.
== END | disposition home or self-care (01) ==
LOC: RADMRIMAIN 14:10
PROVIDERS: ATTEND Otolaryngology
DX: R51.9 Headache, unspecified (principal); R93.0 Abnormal findings on diagnostic imaging of skull and head, not elsewhere classified
CPT/HCPCS: 70544

== ENCOUNTER → 2021-12-10 | Outpatient (CLI) | payer MEDICARE, OTHER ==
--- NOTE | 2021-12-11 09:03 | MM ---
Reason for Exam: Screening (asymptomatic). Last mammogram was performed 1 year(s) and 1 month(s) ago. Patient History: Menarche at age 15. First Full-Term at age 16. Hysterectomy at age 32. Postmenopausal. Breast cancer, right, age 41. Previous chest radiation therapy at age 41. Hormonal Contraceptives for 3 months. 01/15/2021, Reduction on the Left side. 2011, Lumpectomy on the Right side. Maternal grandmother had breast cancer, age 48. Maternal grandmother tested for BRCA1 outcome was negative. Prior Study Comparison: 03/02/2019 Right Diagnostic Mammogram, [facility]. 11/21/2019 Bilateral Diagnostic Mammogram, [facility]. 11/28/2020 Bilateral Screening Mammogram, [facility]. Tissue Density: There are scattered fibroglandular densities. Findings: Analyzed By CAD. There is no suspicious group of microcalcifications or new suspicious mass in either breast. Right lumpectomy change with heterogenous calcifications. No significant change from prior exams. Overall Assessment: Benign, BI-RAD 2 Management: Screening Mammogram of both breasts in 1 year. A clinical breast exam by your physician is recommended on an annual basis and results should be correlated with mammographic findings. Electronically signed and approved by: Damián Wen D.O.
== END | disposition home or self-care (01) ==
LOC: RADMAMWWP 14:57
PROVIDERS: ATTEND Surgery
DX: Z12.31 Encounter for screening mammogram for malignant neoplasm of breast (principal); Z78.0 Asymptomatic menopausal state; Z80.3 Family history of malignant neoplasm of breast
CPT/HCPCS: 77063; 77067

== ENCOUNTER 2022-02-26 09:12 | Day surgery (SDC) | payer MEDICARE, OTHER ==
[2022-02-26 10:59] VITALS: RESP 16; TEMP 97.8
[2022-02-26] MEDS: LACTATED RINGERS 1,000 ML IV SCH ×2 (11:13→11:55)
[2022-02-26] MEDS ORDERED: LIDOCAINE 1% (10MG/ML) FOR IV START INTRADERMA ONE (11:13)
[2022-02-26] MEDS ORDERED: fentaNYL (PF) 50 MCG/ML 2 ML AMP ONE (11:57)
[2022-02-26] MEDS ORDERED: LIDOCAINE 2% INJ 20 MG/ML (2 ML VIAL) ONE (11:57)
[2022-02-26] MEDS ORDERED: PROPOFOL 10 MG/ML 20 ML VIAL IV ONE (11:57)
[2022-02-26] MEDS ORDERED: MIDAZOLAM 2 MG/2 ML VIAL ONE (11:57)
--- NOTE | 2022-02-26 12:17 | P.PCN ---
Date of Procedure: 02/26/22 Procedure(s) Performed: Brief history: Patient is a pleasant 51-year-old white female scheduled for an elective upper endoscopy as well as colonoscopy as a part of evaluation of GERD/epigastric pain/intermittent nausea vomiting and change in bowel habits Procedure performed: Esophagogastroduodenoscopy with biopsy Colonoscopy Preoperative diagnosis: GERD/epigastric pain/intermittent nausea vomiting Change in bowel habits Anesthesia: MAC Procedure: After informed consent was obtained from the patient was brought into the endoscopy unit and IV sedation was administered by anesthesia under continuous monitoring. Initially upper endoscopy was done. The Olympus GF 160 video endoscope was inserted inserted into the mouth and esophagus intubated without any difficulty and was gradually advanced into the stomach and duodenum and carefully examined. The bulb and second part of the duodenum appeared normal. The scope was then withdrawn into the stomach adequately insufflated with air and upon careful examination the antrum had diffuse mottling of the mucosa and biopsies were done from this area. Mucosa of the body, cardia and fundus appeared normal. The scope was then withdrawn into the esophagus. The GE junction was located at 40 cm to the incisors. It appeared regular with no erythema erosions or ulcerations. Rest of the esophagus appeared normal. Patient tolerated the procedure well. At this time the patient continued to remain sedation. Initial digital rectal examination was normal. Olympus CF 160 video colonoscope was then inserted into the rectum and gradually advanced to the cecum without any difficulty. Careful examination was performed as the scope was gradually being withdrawn. The prep was excellent. The cecum, ascending colon, transverse colon, descending colon, sigmoid colon and rectum appeared normal. Retroflexion was performed in the rectum and no lesions were noted. Patient tolerated the procedure well. Impression: 1. Upper endoscopy revealed mild antral gastritis but no evidence of esophagitis or peptic ulcer 2. Colonoscopy was within normal limits with no evidence of colorectal neoplasia. Recommendations: Findings of this examination were discussed with the patient as well as her family. She was advised to follow with the biopsy results. Continue with omeprazole 20 mg daily and Pepcid at bedtime and follow antireflux measures. Recommend repeat screening colonoscopy in 10 years.
[2022-02-26 12:40] VITALS: BP 118/83; PULSE 72
== END 2022-02-26 12:48 | disposition home or self-care (01) ==
LOC: ORWHC2ENDO 09:12
PROVIDERS: ATTEND Internal Medicine Gastroenterology
DX: R19.4 Change in bowel habit (principal); K29.50 Unspecified chronic gastritis without bleeding; F41.9 Anxiety disorder, unspecified; F32.A Depression, unspecified; Z88.0 Allergy status to penicillin; Z88.8 Allergy status to other drugs, medicaments and biological substances; Z79.899 Other long term (current) drug therapy
CPT/HCPCS: 88305; 45378; 43239; J2250; J3010; J2704; J2001

== ENCOUNTER → 2022-05-02 | Outpatient (CLI) | payer MEDICARE, OTHER ==
--- NOTE | 2022-05-02 09:32 | US ---
EXAMINATION TYPE: US abdomen complete DATE OF EXAM: 05/02/2022 COMPARISON: NONE CLINICAL HISTORY: R10.9 UNSPECIFIED ABDOMINAL PAIN. TECHNIQUE: Multiple sonographic images of the abdomen are obtained. FINDINGS: EXAM MEASUREMENTS: Liver Length: 17.4 cm Gallbladder Wall: 0.17 cm CBD: 0.45 cm Spleen: 10.3 cm Right Kidney: 10.3 x 3.9 x 4.5 cm Left Kidney: 10.4 x 5.4 x 4.4 cm Pancreas: wnl Liver: Enlarged, slightly heterogeneous, with increased attenuation Gallbladder: wnl Evidence for sonographic King's sign: No CBD: wnl Spleen: wnl Right Kidney: wnl Left Kidney: wnl Upper IVC: wnl Abd Aorta: wnl Enlarged heterogenous increased echotexture to the liver. No focal lesion identified. No cholelithias is. Pancreas is within normal limits. No hydronephrosis, shadowing calculi, or contour deforming tona d renal mass. Spleen is unremarkable. IMPRESSION: 1. No acute process. 2. Heterogenous enlarged hyperechoic liver which can be seen in the setting of hepatic steatosis/hepa tocellular disease.
== END | disposition home or self-care (01) ==
LOC: RADUSWWP 08:14
PROVIDERS: ATTEND Internal Medicine Gastroenterology
DX: R16.0 Hepatomegaly, not elsewhere classified (principal); R10.9 Unspecified abdominal pain
CPT/HCPCS: 76700

== ENCOUNTER → 2022-09-18 | Outpatient (CLI) | payer MEDICARE, OTHER ==
--- NOTE | 2022-09-18 10:10 | USB ---
Reason for Exam: Clinical finding. Patient History: Menarche at age 15. First Full-Term at age 16. Hysterectomy at age 32. Postmenopausal. Breast cancer, right, age 41. Previous chest radiation therapy at age 41. Hormonal Contraceptives for 3 months. 01/15/2021, Reduction on the Left side. 2011, Lumpectomy on the Right side. Maternal grandmother had breast cancer, age 48. Maternal grandmother tested for BRCA1 outcome was negative. Technique: Method: Whole Breast Handheld. Prior Study Comparison: 11/21/2019 Bilateral Diagnostic Mammogram, [facility]. 11/28/2020 Bilateral Screening Mammogram, [facility]. 12/10/2021 Bilateral MG 3D screening mammo w/cad, [facility]. Findings: The whole breast of both breasts, the axilla of both breasts and the retroareolar of both breasts were scanned. A complete US of all four quadrants of both breasts, axilla, and retro-areolar region were reviewed. Focal area of calcification and shadowing at the patient's previous right-sided lumpectomy site near the axilla. No solid or cystic masses are identified. Maxillary lymphadenopathy. Overall Assessment: Negative, BI-RAD 1 Management: Screening Mammogram of both breasts in 3 months. In time for the patient's annual exam. Further clinical management of patient's bilateral breast pain. Patient should continue monthly self breast exams. Results were given to the patient verbally at the time of exam. Electronically signed and approved by: Mariela Hollingsworth M.D. Radiologist
== END | disposition home or self-care (01) ==
LOC: RADUSWWP 09:06
PROVIDERS: ATTEND Family Medicine
DX: N64.4 Mastodynia (principal); Z78.0 Asymptomatic menopausal state; Z80.3 Family history of malignant neoplasm of breast; Z92.3 Personal history of irradiation

== ENCOUNTER → 2022-09-19 | Outpatient (CLI) | payer MEDICARE, OTHER ==
--- NOTE | 2022-09-20 13:02 | MR ---
EXAMINATION TYPE: MR knee LT wo con DATE OF EXAM: 09/19/2022 COMPARISON: Outside radiograph 07/28/2022 HISTORY: 52-year-old female M25.562, left knee pain. TECHNIQUE: Multiplanar, multisequence imaging of the left knee is performed without IV contrast. FINDINGS: ACL, PCL, and MCL are intact. There is increased signal along the intact fibers of the popliteus tendon. Mild muscle edema along the lateral head gastrocnemius and to a lesser extent along the medial head g astrocnemius. Medial and lateral menisci are intact. No focal chondral defect is identified. Extensor mechanism is intact. Small, physiologic joint effusion. Trace early Granados's cyst formation measuring only 1.5 x 0.6 cm. Normal popliteal artery anatomy in muscle bulk. No suspicious bone marrow replacement. IMPRESSION: 1. Moderate popliteus tendinosis laterally in the knee. 2. Some patchy edema in the lateral head gastrocnemius muscle. To a lesser extent within the medial h ead as well. Findings could represent edema reactive to altered biomechanics versus mild muscle strai ns. 3. Trace early Granados's cyst.
== END | disposition home or self-care (01) ==
LOC: RADMRIMAIN 13:20
PROVIDERS: ATTEND Orthopaedic Surgery
DX: M25.562 Pain in left knee (principal); R60.0 Localized edema; M71.22 Synovial cyst of popliteal space [Baker], left knee

== ENCOUNTER → 2022-11-18 | Outpatient (CLI) | payer MEDICARE, OTHER ==
[2022-11-18 15:03] VITALS: BP 112/76; PULSE 70; RESP 18; TEMP 98.4
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
[2022-11-19 02:41] LABS: Appearance,Urine Turbid (Clear); Bacteria,Urine None Seen (None Seen); Bilirubin,Urine Negative (Negative); Blood,Urine Negative (Negative); Calcium Oxalate Crystals,Urine Present (None Seen); Color,Urine Yellow (Yellow); Ketones,Urine Negative (Negative); Nitrite,Urine Negative (Negative); PH, Urine 5.5; Specific Gravity,Urine 1.023 (1.001-1.030); Urobilinogen,Urine 0.2
--- NOTE | 2022-11-19 12:17 | P.PN ---
Progress Note - Text Progress Note Date: 11/19/22 Urinalysis done on 11/18/2022 had moderate leukocyte esterase. A message with this result was left on the patient's voicemail on 11/19/2022. I also notified her that I will send in a prescription to [facility] pharmacy on . Impression: Cystitis UTI Plan: Macrobid by mouth twice a day 7 days. The electronic prescription will be sent to [facility] pharmacy on . which is listed as her preferred pharmacy. She was also notified that I will call as I get further test results back.
[2022-11-19 17:41] LABS: Gardnerella Negative (Negative); Trichomonas Negative (Negative)
== END ==
LOC: WWCWWP 14:41
PROVIDERS: ATTEND Obstetrics & Gynecology
DX: Z01.419 Encounter for gynecological examination (general) (routine) without abnormal findings (principal); N95.1 Menopausal and female climacteric states; A59.9 Trichomoniasis, unspecified; B96.89 Other specified bacterial agents as the cause of diseases classified elsewhere; N76.0 Acute vaginitis; G89.29 Other chronic pain; R14.0 Abdominal distension (gaseous); R39.15 Urgency of urination; K58.9 Irritable bowel syndrome, unspecified; N83.209 Unspecified ovarian cyst, unspecified side; Z80.3 Family history of malignant neoplasm of breast; Z85.3 Personal history of malignant neoplasm of breast; Z88.0 Allergy status to penicillin; Z87.442 Personal history of urinary calculi; Z88.8 Allergy status to other drugs, medicaments and biological substances; Z92.3 Personal history of irradiation
CPT/HCPCS: 81001; 87086; 87480; 87491; 87510; 87660

== ENCOUNTER → 2022-12-30 | Outpatient (CLI) | payer MEDICARE, OTHER ==
--- NOTE | 2023-01-01 00:46 | MM ---
Reason for Exam: Screening (asymptomatic). Last screening mammogram was performed 12 month(s) ago. Patient History: Menarche at age 15. First Full-Term at age 16. Hysterectomy at age 32. Postmenopausal. Breast cancer, right, age 41. Previous chest radiation therapy at age 41. Hormonal Contraceptives for 3 months. 01/15/2021, Reduction on the Left side. 2011, Lumpectomy on the Right side. Maternal grandmother had breast cancer, age 48. Maternal grandmother tested for BRCA1 outcome was negative. Prior Study Comparison: 11/21/2019 Bilateral Diagnostic Mammogram, [facility]. 11/28/2020 Bilateral Screening Mammogram, [facility]. 12/10/2021 Bilateral MG 3D screening mammo w/cad, [facility]. Tissue Density: There are scattered fibroglandular densities. Findings: Analyzed By CAD. Asymmetric density laterally in the left breast remains unchanged. Fat necrosis calcification at the right axillary tail remains unchanged. There is no suspicious group of microcalcifications or new suspicious mass in either breast. Overall Assessment: Benign, BI-RAD 2 Management: Screening Mammogram of both breasts in 1 year. . Patient should continue monthly self-breast exams. A clinical breast exam by your physician is recommended on an annual basis. This exam should not preclude additional follow-up of suspicious palpable abnormalities. Note on Barbara scores and lifetime risk: 1. A Barbara score greater than 3% is considered moderate risk. If this is the case, consider specialist referral to assess eligibility for a risk reducing agent. 2. If overall lifetime risk for the development of breast cancer is 20% or higher, the patient may qualify for future screening with alternating mammogram and breast MRI. Electronically signed and approved by: Mariela Hollingsworth M.D. Radiologist
== END | disposition home or self-care (01) ==
LOC: RADMAMWWP 07:36
PROVIDERS: ATTEND Obstetrics & Gynecology
DX: Z12.31 Encounter for screening mammogram for malignant neoplasm of breast (principal); Z78.0 Asymptomatic menopausal state; Z80.3 Family history of malignant neoplasm of breast; Z92.3 Personal history of irradiation
CPT/HCPCS: 77063; 77067

== ENCOUNTER → 2023-01-01 | Outpatient (CLI) | payer MEDICARE, OTHER ==
--- NOTE | 2023-01-01 15:52 | US ---
EXAMINATION TYPE: US pelvic complete DATE OF EXAM: 01/01/2023 COMPARISON: NONE CLINICAL INDICATION: Female, 52 years old with history of R10.2 PEL PAIN, R68.89 ABNORMAL PEL PAIN, R 14.0 ABD; hx of hysterectomy TECHNIQUE: Transabdominal (TA). EXAM MEASUREMENTS: Uterus: Surgically absent Endometrial Stripe: Surgically absent Right Ovary: 1.8 x 1.7 x 1.9 cm Left Ovary: 2.0 x 1.5 x 1.6 cm 1. Uterus: Surgically absent 2. Endometrium: Surgically absent 3. Right Ovary: wnl 4. Left Ovary: wnl 5. Bilateral Adnexa: wnl 6. Posterior cul-de-sac: wnl Bowel noted within bilateral adnexas. Both ovaries are unremarkable. No free fluid. The uterus and en dometrium are surgically absent. IMPRESSION: 1. No acute pelvic process. 2. Post surgical changes from hysterectomy.
--- NOTE | 2023-01-07 14:12 | P.PN ---
Progress Note - Text Progress Note Date: 01/07/23 OUTPATIENT FOLLOW-UP NOTE TEST(S)/RESULTS: Pelvic ultrasound done on 01/01/2023 was unremarkable. METHOD OF NOTIFICATION: These results were left on the patient's voice mail on 01/07/2023. PATIENT COMMENTS: DIAGNOSIS: Negative pelvic ultrasound. DISCUSSION: PLAN: The patient was instructed to call if she has any questions. She will return in one year for her well woman examination and as needed.
== END | disposition home or self-care (01) ==
LOC: RADUSWWP 14:56
PROVIDERS: ATTEND Obstetrics & Gynecology
DX: R10.2 Pelvic and perineal pain (principal); R68.89 Other general symptoms and signs; R14.0 Abdominal distension (gaseous); Z90.710 Acquired absence of both cervix and uterus
CPT/HCPCS: 76856

== ENCOUNTER → 2023-07-18 | Outpatient (CLI) | payer MEDICARE, OTHER ==
--- NOTE | 2023-07-18 15:11 | XR ---
EXAMINATION TYPE: XR sinus DATE OF EXAM: 07/18/2023 3:01 PM CLINICAL INDICATION:Female, 52 years old with history of J32.9 Recurrent Sinusitis; [facility] COMPARISON: None TECHNIQUE: the sinuses frontal, lateral and [place]. FINDINGS: Radiographic evaluation of the orbits fail to demonstrate evidence of an orbital fracture. There is n o radiopaque foreign body identified. The adjacent paranasal sinuses are well aerated an without evid ence of intra-cavitary fluid accumulation. The nasal bridge appears intact. The mandible appears inta ct. Mastoid air cells are well aerated. The frontal sinus and maxillary sinuses are well aerated. IMPRESSION: No evidence of significant paranasal sinus disease. A CT sinus exam would fully evaluate the paranasa l sinuses associated anatomic structures.
== END | disposition home or self-care (01) ==
LOC: RADXRMAIN 14:27
PROVIDERS: ATTEND Family Medicine
DX: J32.9 Chronic sinusitis, unspecified (principal)
CPT/HCPCS: 70220

== ENCOUNTER → 2023-08-19 | Outpatient (CLI) | payer MEDICARE, OTHER ==
[2023-08-19 15:36] LABS: Appearance,Urine Clear (Clear); Bilirubin,Urine Negative (Negative); Blood,Urine Negative (Negative); Color,Urine Yellow; Glucose,Urine (UA) Negative (Negative); Ketones,Urine Negative (Negative); Leukocyte Esterase,Urine Small (Negative); Mucus,Urine Occasional /hpf; Nitrite,Urine Negative (Negative); PH, Urine 5.5 (5.0-8.0); Protein,Urine Trace (Negative); RBC,Urine 1 /hpf (0-5); Specific Gravity,Urine 1.027 (1.001-1.035); Squamous Epithelial Cell,Urine 1 /hpf (0-4); Urobilinogen,Urine <2.0 mg/dL (<2.0); WBC,Urine 2 /hpf (0-5)
[2023-08-19 19:55] LABS: Protein, Total 6.7 g/dL (6.2-8.2)
[2023-08-19 20:12] LABS: Hepatitis B Surface Antigen Nonreactive (Nonreactive); Hepatitis C IgG Antibody Nonreactive (Nonreactive)
[2023-08-19 20:43] LABS: ALT 31 U/L (8-44); AST 18 U/L (13-35); Albumin 4.6 g/dL (3.8-4.9); Alkaline Phosphatase 75 U/L (41-126); BUN/Creat Ratio 26.43 Ratio (12.00-20.00); Blood Urea Nitrogen 18.5 mg/dL (9.0-27.0); C Reactive Protein <0.30 mg/dL (0.00-0.80); Calcium 9.7 mg/dL (8.7-10.3); Carbon Dioxide 26.9 mmol/L (21.6-31.8); Chloride 102 mmol/L (96-109); Creatine Kinase 65 U/L (26-186); Glucose 84 mg/dL (70-110); Rheumatoid Factor, Qnt 19 IU/mL (0-15); Sodium 141 mmol/L (135-145); Total Bilirubin 0.5 mg/dL (0.3-1.2); Total Protein 6.6 g/dL (6.2-8.2); Uric Acid 3.1 mg/dL (2.9-7.7)
[2023-08-19 21:12] LABS: Anti-DNA, DS unit <1.0 IU/mL; Anti-Smith Ab Interp Negative (Negative); Cardiolipin Ab IgG Interp Negative (Negative); Cardiolipin Ab IgM Interp Negative (Negative); Cardiolipin IgM Antibody <1.5 U/mL; Centromere Antibody <0.2 AI; Centromere Antibody Interp Negative (Negative); DNA Double-Stranded Negative (Negative)
[2023-08-19 23:10] LABS: Cyclic Citrull Pep IgG Unit <1.5 U/mL (<=3.9); Cyclic Citrullinated Pep IgG Negative
[2023-08-20 09:12] LABS: Angiotensin-1 Converting Enz. 49 U/L (8-52)
[2023-08-20 11:01] LABS: Free Kappa Lt Chain Qnt, Serum 1.04 mg/dL (0.33-1.94); Free Lambda Lt Chain Qnt, Seru 0.75 mg/dL (0.57-2.63)
[2023-08-20 13:01] LABS: APTT 31 Sec(s) (<43); Dilute Russell Viper Venom 28 Sec(s) (<44)
[2023-08-20 13:25] LABS: HLA B27 NEGATIVE
[2023-08-20 14:15] LABS: C-ANCA <1:20 Titer (<1:20)
[2023-08-20 17:04] LABS: Albumin 4.44 g/dL (3.80-4.90); Gamma Globulin 0.72 g/dL (0.70-1.50)
== END | disposition home or self-care (01) ==
LOC: LABWHC1 14:27
PROVIDERS: ATTEND Internal Medicine Rheumatology
DX: Z11.59 Encounter for screening for other viral diseases (principal); M13.0 Polyarthritis, unspecified; Z72.89 Other problems related to lifestyle; E55.9 Vitamin D deficiency, unspecified; E03.9 Hypothyroidism, unspecified; R76.8 Other specified abnormal immunological findings in serum
CPT/HCPCS: 36415; 80053; 81001; 82164; 82306; 82550; 83520; 83883; 84165; 84439; 84443; 84550; 85025; 85613; 85652; 85730; 86038; 86140; 86147; 86160; 86162; 86200; 86225; 86235; 86255; 86334; 86431; 86803; 86812; 87340

== ENCOUNTER → 2023-09-07 | Outpatient (CLI) | payer MEDICARE, OTHER ==
[2023-09-07 19:28] LABS: Basophils # (A) 0.01 X 10*3/uL (0.00-0.10); Basophils % (A) 0.2 %; Eosinophils # (A) 0.02 X 10*3/uL (0.04-0.35); Eosinophils % (A) 0.4 %; HCT 41.1 % (37.2-46.3); HGB 13.4 g/dL (12.0-15.0); Lymphocytes # (A) 1.64 X 10*3/uL (0.90-5.00); Lymphocytes % (A) 33.8 %; MCH 30.3 pg (27.0-32.0); MCHC 32.6 g/dL (32.0-37.0); Mean Platelet Volume 12.6 FL (9.5-12.2); Monocytes # (A) 0.33 X 10*3/uL (0.20-1.00); Monocytes % (A) 6.8 %; NRBC Per 100 WBC 0 X 10*3/uL (0.00-0.01); Neutrophils # (A) 2.83 X 10*3/uL (1.80-7.70); Neutrophils % (A) 58.4 %; Platelet Count 157 X 10*3/uL (140-440); RBC 4.42 X 10*6/uL (4.10-5.20); RDW 13.1 % (11.5-14.5); WBC 4.85 X 10*3/uL (4.50-10.00)
[2023-09-07 21:01] LABS: Erythrocyte Sedimentation Rate <1 mm/Hr (0-30)
== END | disposition home or self-care (01) ==
LOC: LABWHC1 14:43
PROVIDERS: ATTEND Internal Medicine Rheumatology
DX: Z11.59 Encounter for screening for other viral diseases (principal); Z72.89 Other problems related to lifestyle; E55.9 Vitamin D deficiency, unspecified; M13.0 Polyarthritis, unspecified; E03.9 Hypothyroidism, unspecified; R76.8 Other specified abnormal immunological findings in serum
CPT/HCPCS: 36415; 85025; 85652

== ENCOUNTER → 2024-01-20 | Outpatient (CLI) | payer MEDICARE, OTHER ==
--- NOTE | 2024-01-20 18:34 | CT ---
EXAMINATION TYPE: CT brain wo con DATE OF EXAM: 01/20/2024 COMPARISON: None. MRA [place] is reviewed. INDICATION: white matter disease DLP: 1135 mGycm, Automated exposure control for dose reduction was used. CONTRAST: None CT of the brain is performed utilizing 3 mm thick sections through the posterior fossa and 3 mm thick sections through the remaining calvarium. Study is performed within 24 hours of arrival to the hosp [place]. No abnormal hyperdensity is present to suggest an acute intracranial hemorrhage. No mass lesion is evident. No acute infarcts are evident. Significant hypodensity within the deep white matter to suggest underl ioana white matter disease is not apparent. MRI more sensitive than CT for white matter changes. Ventricles and sulci are appropriate for the patient age. No mass effect is evident. There is a retention cyst right maxillary sinus. Small retention cyst is within the posterior right s phenoid sinus. IMPRESSION: 1. No acute intracranial process. Follow up MRI can be performed as clinically indicated. [facility], , 01/20/2024 6:32 PM
== END | disposition home or self-care (01) ==
LOC: RADCTMAIN 16:13
PROVIDERS: ATTEND Psychiatry & Neurology Neurology
DX: R90.82 White matter disease, unspecified
CPT/HCPCS: 70450

== ENCOUNTER → 2024-01-20 | Outpatient (CLI) | payer MEDICARE, OTHER ==
--- NOTE | 2024-02-02 07:41 | CT ---
EXAMINATION TYPE: CT chest wo con DATE OF EXAM: 01/20/2024 COMPARISON: None HISTORY: Abn find CT DLP: 669 mGycm, Automated exposure control for dose reduction was used. CONTRAST: Performed injected with 0 mL of Isovue 300. TECHNIQUE: Axial images were obtained at 5 mm thick sections. Reconstructed images are reviewed on [employer] computer in the coronal plane. FINDINGS: Portion of the thyroid visualized is normal. No suspicious lung nodules or focal infiltrates are present. No enlarged mediastinal or hilar adenopathy is evident. The ascending aorta diameter at the level o f the main pulmonary artery is 2.9 cm. The main pulmonary artery diameter at the bifurcation is 2.9 cm. Stimulator leads are within the posterior mid thoracic spine canal region. Limited CT sections are obtained through the upper abdomen. Nonobstructing renal stones are on the le ft. IMPRESSION: 1. No suspicious acute pulmonary process. 2. Nonobstructing superior pole left renal stones [facility], , 02/02/2024 7:39 AM
== END | disposition home or self-care (01) ==
LOC: RADCTMAIN 16:11
PROVIDERS: ATTEND Family Medicine
DX: R93.89 Abnormal findings on diagnostic imaging of other specified body structures
CPT/HCPCS: 71250

== ENCOUNTER → 2024-01-20 | Outpatient (CLI) | payer MEDICARE, OTHER ==
--- NOTE | 2024-01-24 14:59 | MM ---
Reason for Exam: Hx of breast cancer, conservation therapy. Last mammogram was performed 1 year(s) and 1 month(s) ago. Patient History: Menarche at age 15. First Full-Term at age 16. Hysterectomy at age 32. Postmenopausal. Breast cancer, right, age 41. Previous chest radiation therapy at age 41. Hormonal Contraceptives for 3 months. 01/15/2021, Reduction on the Left side. 2011, Lumpectomy on the Right side. Maternal grandmother had breast cancer, age 48. Maternal grandmother tested for BRCA1 outcome was negative. Prior Study Comparison: 11/28/2020 Bilateral Screening Mammogram, [facility]. 12/10/2021 Bilateral MG 3D screening mammo w/cad, [facility]. 12/30/2022 Bilateral MG 3D screening mammo w/cad, [facility]. Tissue Density: There are scattered areas of fibroglandular density. Findings: Analyzed By CAD. The pattern is symmetrical. Pattern appears stable. Focal asymmetries upper-outer left breast. This is stable from comparison. No mammographic abnormality at the palpable marker medial left breast. No suspicious groups of microcalcifications, spiculated or lobular masses, architectural distortion or other secondary signs of malignancy are mammographically apparent. Overall Assessment: Benign, BI-RAD 2 Management: Screening Mammogram of both breasts in 1 year. A negative mammogram report should not preclude additional follow up of suspicious palpable abnormalities. Patient should continue monthly self breast exam. A clinical breast exam by your physician is recommended on an annual basis and results should be correlated with mammographic findings. Note on Barbara scores and lifetime risk: 1. A Barbara score greater than 3% is considered moderate risk. If this is the case, consider specialist referral to assess eligibility for a risk reducing agent. 2. If overall lifetime risk for the development of breast cancer is 20% or higher, the patient may qualify for future screening with alternating mammogram and breast MRI. [facility], , 01/24/2024 2:56 PM. Electronically signed and approved by: Wilian Schreiber D.O. Radiologis
== END | disposition home or self-care (01) ==
LOC: RADMAMWWP 15:35
PROVIDERS: ATTEND Obstetrics & Gynecology
DX: Z12.31 Encounter for screening mammogram for malignant neoplasm of breast
CPT/HCPCS: 77063; 77067

== ENCOUNTER → 2024-02-26 | Outpatient (CLI) | payer MEDICARE, OTHER ==
--- NOTE | 2024-02-26 10:22 | CT ---
EXAMINATION TYPE: CT shoulder LT wo con DATE OF EXAM: 02/26/2024 COMPARISON: No radiographic correlation available HISTORY: 53-year-old female chronic shoulder pain, M19.90 UNSPECIFIED OSTEOARTHRITIS, UNSPECIFIED SIT TECHNIQUE: CT of the left shoulder without IV contrast. Coronal and sagittal reconstructions performe d. 3-D reconstructions generated on a dedicated independent workstation. CT DLP: 288.7 mGycm Automated exposure control for dose reduction was used. FINDINGS: Mild degenerative change with some joint space narrowing and subchondral cystic change in the AC join t. There is mild capsular hypertrophy also noted. No shoulder joint effusion. Glenohumeral joint space is relatively maintained. No acute fracture, subluxation, dislocation. Preserved muscle bulk and volume of the rotator cuff musculature and subacromial space. No bursal effusion. Visualized left hemithorax is clear. No os acromiale or Hill-Sachs deformity. IMPRESSION: 1. MILD AC JOINT OA. 2. OTHERWISE, NO SPECIFIC CT ABNORMALITY OF THE LEFT SHOULDER. [facility], , 02/26/2024 10:20 AM
== END | disposition home or self-care (01) ==
LOC: RADCTMAIN 07:14
PROVIDERS: ATTEND Psychiatry & Neurology Neurology

== ENCOUNTER → 2024-10-28 | Outpatient (CLI) | payer MEDICARE, OTHER ==
--- NOTE | 2024-10-30 19:00 | CT ---
EXAMINATION TYPE: CT shoulder LT wo con DATE OF EXAM: 10/28/2024 12:27 PM COMPARISON: 02/26/2024 CLINICAL INDICATION: Female, 54 years old with history of M47.616, M19.012 PRIMARY OSTEOARTHRITIS, LE FT SHOU, osteoarthritis TECHNIQUE: Contrast used: mL of , (none if empty) Oral contrast used: (none if empty) Axial images at 5 mm thick sections. Reconstructed images in the coronal and sagittal planes. 3-D re constructed images are reviewed on the computer rotating images. FINDINGS: No acute fracture or dislocation evident. Humeral head articulates with the glenoid. Acromioclavicula r junction is very minimal degenerative change, stable from comparison.. Scapula is intact. Sternocla vicular junction appears normal. Ribs within the field of view are normal. Glenohumeral joint space a ppears preserved complete acromial humeral joint space is preserved. IMPRESSION: 1. NO ACUTE OSSEOUS ABNORMALITY LEFT SHOULDER. EXAM APPEARS STABLE FROM COMPARISON. [facility], , 10/30/2024 6:58 PM
--- NOTE | 2024-10-30 19:36 | CT ---
EXAMINATION TYPE: CT lumbar spine wo con DATE OF EXAM: 10/28/2024 12:27 PM COMPARISON: None. CLINICAL INDICATION: Female, 54 years old with history of M47.616, M19.012 PRIMARY OSTEOARTHRITIS, LE FT SHOU, osteoarthritis, pain TECHNIQUE: CT of the lumbar spine is performed on a spiral scan at 3 mm thick sections. Reconstructed images are performed in the coronal and sagittal planes. Contrast used: mL of , (none if empty) Oral contrast used: (none if empty) CT DLP: 420 mGycm, Automated exposure control for dose reduction was used. FINDINGS: T12-L1: No focal disc herniation or significant disc bulge is evident. No spinal canal stenosis or neural foraminal stenosis is present. L1-L2: No focal disc herniation or significant disc bulge is evident. No spinal canal stenosis or n eural foraminal stenosis is present L2-L3: Broad-based disc bulge is present with mild sac compression. No AP spinal canal stenosis or ne ural foraminal stenosis. L3-L4: No focal disc herniation or significant disc bulge is evident. No spinal canal stenosis or n eural foraminal stenosis is present. Some posterior disc space narrowing may be present. L4-L5: Left paracentral extending into the left lateral correction endplate spurring is present with mild anterior thecal sac compression. No spinal canal stenosis is present. There may be some narrowin g of the left foraminal opening. Foramen otherwise appears patent. There appears to be a disc spacer present. Facet vacuum phenomenon is present on the left. Laminectomy is present. L5-S1: Disc spacers present. No focal disc herniation is evident. Laminectomies been performed. No sp inal canal stenosis or neural foraminal stenosis Vertebral alignment appears normal. IMPRESSION: 1. Left paracentral endplate spurring with mild anterior thecal sac compression. This patient has latoya e mild foraminal opening narrowing. 2. Broad-based disc bulge L2-3 with mild anterior thecal sac compression. [facility], , 10/30/2024 7:34 PM
== END | disposition home or self-care (01) ==
LOC: RADCTMAIN 11:26
PROVIDERS: ATTEND Psychiatry & Neurology Neurology
DX: M51.369 Other intervertebral disc degeneration, lumbar region without mention of lumbar back pain or lower extremity pain (principal); M47.816 Spondylosis without myelopathy or radiculopathy, lumbar region; M19.012 Primary osteoarthritis, left shoulder; M48.061 Spinal stenosis, lumbar region without neurogenic claudication
CPT/HCPCS: 72131